=== PATIENT | male | born 1970 | race Caucasian/White ===

== ENCOUNTER 2025-07-24 13:20 | Emergency (ER) | payer SELFPAY ==
[2025-07-24 13:23] VITALS: BP 143/82
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
[2025-07-24] MEDS: LIDOCAINE 4% PATCH 1 PATCH TOPICAL (14:51)
[2025-07-24] MEDS: FLEXERIL 10 MG PO (14:51)
== END 2025-07-24 17:51 | disposition home or self-care (01) ==
LOC: EMR 13:20
PROVIDERS: EMERGENCY PHYSICIAN Emergency Medicine
DX: S16.1XXA Strain of muscle, fascia and tendon at neck level, initial encounter (principal); S32.018A Other fracture of first lumbar vertebra, initial encounter for closed fracture; M54.16 Radiculopathy, lumbar region; V49.40XA Driver injured in collision with unspecified motor vehicles in traffic accident, initial encounter; Y92.410 Unspecified street and highway as the place of occurrence of the external cause; R51.9 Headache, unspecified; R20.2 Paresthesia of skin; E11.9 Type 2 diabetes mellitus without complications; I48.91 Unspecified atrial fibrillation; K70.30 Alcoholic cirrhosis of liver without ascites
CPT/HCPCS: 99284; 70450; 72125; 72131